=== PATIENT | female | born 2000 | race African-American/Black ===

== ENCOUNTER 2019-01-07 00:34 | Emergency (ER) | payer SELFPAY ==
[~2019-01-07] VITALS: Ht 160 cm; Wt 83.8 kg
[2019-01-07] MEDS ORDERED: KETOROLAC 30 MG/1 ML ONE (01:21)
--- NOTE | 2019-01-07 01:28 | NUR ---
BREAK RN. PT RESTING. PT MEDICATED FOR PAIN. VSS. CALL LIGHT IN REACH
[2019-01-07 01:30] LABS: BASOPHILS # (AUTO) 0.02 x10^3/uL (0-0.3); BASOPHILS % (AUTO) 0 % (0-1); EOSINOPHILS # (AUTO) 0.08 x10^3/uL (0-0.8); EOSINOPHILS % (AUTO) 1 % (1-7); LYMPHOCYTES # (AUTO) 2.17 x10^3/uL (1-6.1); LYMPHOCYTES % (AUTO) 18 % (22-44); MD NO; MEAN CORPUSCULAR HEMOGLOBIN 31.3 pg (27.0-34.8); MEAN CORPUSCULAR HGB CONC 33.6 g/dL (32.4-35.8); MEAN PLATELET VOLUME 8.1 fL (7.4-10.4); MONOCYTES # (AUTO) 0.92 x10^3/uL (0-1.4); MONOCYTES % (AUTO) 8 % (2-9); NEUTROPHILS # (AUTO) 8.57 x10^3/uL (1.8-8.0); NEUTROPHILS % (AUTO) 73 % (42-75); PLATELET COUNT 285 x10^3/uL (130-400); RED BLOOD COUNT 4.86 x10^6/uL (3.82-5.3); RED CELL DISTRIBUTION WIDTH 13.1 % (9.6-15.2)
[2019-01-07] MEDS ORDERED: KETOROLAC 30 MG/1 ML IM ONE (01:30)
[2019-01-07 01:43] LABS: ANION GAP 6 mmol/L (5-15); CALCIUM 8.9 mg/dL (8.5-10.1); CHLORIDE 109 mmol/L (98-107); CREATININE 0.81 mg/dL (0.55-1.02)
[2019-01-07 02:11] VITALS: BP 124/76
--- NOTE | 2019-01-07 02:11 | NUR ---
PT TO US NOW
--- NOTE | 2019-01-07 02:34 | NUR ---
PT BACK TO ROOM FROM US NOW.
--- NOTE | 2019-01-07 03:56 | NUR ---
EDMD AT BEDSIDE TO EXPLAIN ALL RESULTS. AWAITING DC NOW.
--- NOTE | 2019-01-07 04:11 | NUR ---
PT GIVEN DC INSTRUCTIONS AND SCRIPTS. PT EDUCATED REGARDING DC MEDICATIONS. PT'S AOX4. RESPS EVEN AND UNLABORED. PT AMB TO DC WITH STEADY GAIT. NO ACUTE DISTRESS AT DC.
== END 2019-01-07 04:12 | disposition home or self-care (01) ==
LOC: EDBD 00:34 → ED 02:09
DX: O20.0 Threatened abortion (principal); Z3A.01 Less than 8 weeks gestation of pregnancy; F17.200 Nicotine dependence, unspecified, uncomplicated
CPT/HCPCS: 36415; 76856; 80048; 82040; 84702; 84703; 85025; 86901; 96372; 99284; J1885